=== PATIENT | female | born 1960 ===

== ENCOUNTER → 2022-03-17 | Day surgery (SDC) | payer OTHER ==
[~2022-03-17] VITALS: Ht 167.6 cm; Wt 81.6 kg
[~2022-03-17] MED LIST: D3 + K2 DOTS 11 EACH PO; SYNTHROID100 MCG PO; ULTRACET PO
== END | disposition home or self-care (01) ==
LOC: ADM 03-12 08:30 → CIR.AMB 05:52
PROVIDERS: ATTEND Surgery
DX: K81.1 Chronic cholecystitis (principal); Z20.822 Contact with and (suspected) exposure to COVID-19; Z88.8 Allergy status to other drugs, medicaments and biological substances; E66.9 Obesity, unspecified